=== PATIENT | male | born 1960 | race Two or more races ===

== ENCOUNTER 2025-03-18 08:45 | Outpatient (CLI) | payer OTHER | END 2025-03-18 08:58 | disposition home or self-care (01) | LOC: RAD 08:45 | PROVIDERS: ATTEND Internal Medicine Cardiovascular Disease | DX: R31.9 Hematuria, unspecified (principal); R10.9 Unspecified abdominal pain; K57.30 Diverticulosis of large intestine without perforation or abscess without bleeding; M12.9 Arthropathy, unspecified; M46.47 Discitis, unspecified, lumbosacral region | CPT/HCPCS: 72100; 74177; Q9965 ==